=== PATIENT | female | born 1935 | race Asian ===

== ENCOUNTER 2016-10-19 14:35 | Emergency (ER) | payer MEDICARE ==
[~2016-10-19] VITALS: Ht 152.4 cm; Wt 55.0 kg
[2016-10-19 14:39] VITALS: BP 134/79
[2016-10-19] MEDS ORDERED: ONDANSETRON ODT 4 MG PO ONE (15:30)
[2016-10-19] MEDS ORDERED: OXYcodone/APAP 5/325MG TABLET PO ONE (15:30)
[2016-10-19] MEDS ORDERED: OXYcodone/APAP 5/325MG TABLET ONE (15:40)
[2016-10-19] MEDS ORDERED: ONDANSETRON ODT 4 MG ONE (15:40)
[2016-10-19] MEDS ORDERED: SODIUM CHLORIDE 0.9% 1,000ML IVBOLUS ONE (18:00)
[2016-10-19] MEDS ORDERED: SODIUM CHLORIDE FLUSH 10ML SYR IVF ONE (18:00)
[2016-10-19 18:05] LABS: BLOOD UREA NITROGEN 40 mg/dL (7-18)
== END 2016-10-19 18:56 | disposition left against medical advice (07) ==
LOC: ED 17:44
DX: S32.301A Unspecified fracture of right ilium, initial encounter for closed fracture (principal); M51.36 Other intervertebral disc degeneration, lumbar region; I10 Essential (primary) hypertension; D50.0 Iron deficiency anemia secondary to blood loss (chronic); X58.XXXA Exposure to other specified factors, initial encounter; Y93.89 Activity, other specified; Y99.8 Other external cause status; Y92.89 Other specified places as the place of occurrence of the external cause
CPT/HCPCS: 36415; 72110; 72192; 73502; 80048; 82040; 85025; 85610; 85730; 99285; Q0162